=== PATIENT | male | born 1930 | race Caucasian/White ===

== ENCOUNTER 2017-11-17 10:38 | Inpatient (IN) ==
[2017-11-17 11:50] LABS: Basophils % 0.4 % (0.0-0.8); Eosinophils % 0.2 % (0.00-10.9); Hematocrit 37.1 VOL% (42.0-52.0); Hemoglobin 12.6 GM/DL (14.0-18.0); Immature Granulocytes % 0.7 %; Immature Granulocytes Absolute 0.06 #; Lymphocytes # 0.6 10*3/uL (1.4-4.0); Lymphocytes % 7.5 % (21.2-54.2); Mean Corpuscular Hemoglobin 34 PG (27-34); Mean Corpuscular Volume 98.7 FL (87-102); Mean Platelet Volume 9.5 FL (9.6-12.0); Monocytes # 1.3 10*3/uL (0.11-0.8); Monocytes % 15.7 % (1.7-12.7); Neutrophils # 6.4 10*3/uL (1.4-7.4); Neutrophils % 75.5 % (38.7-73.9); Platelet Count 153 T/CUMM (130-400); Red Blood Count 3.76 MC/CUMM (3.8-5.5); Red Cell Distribution Width 13.7 % (9.3-17.3); White Blood Count 8.5 T/CUMM (4-12)
[2017-11-17 12:22] LABS: Band Neutrophils 2 % (0-10); Hypochromasia 1+; Lymphocytes 11 % (20-55); Platelet Estimate Adequate; Segmented Neutrophils 85 % (50-85); Total Cells Counted 100
[2017-11-17 12:26] LABS: Albumin 3.7 G/DL (3.4-5.0); Bilirubin,Total 0.5 MG/DL (0.2-1.0); Calcium 8.9 MG/DL (8.5-10.1); Osmolality,Calculated 281.8 MOS/KG (273-304); Potassium 4.3 MMOL/L (3.5-5.1); Total Protein 7.4 G/DL (6.4-8.3)
[2017-11-17 12:28] LABS: Troponin I Only 0.019 NG/ML (0.00-0.045)
[2017-11-17] MEDS ORDERED: SODIUM CHLORIDE 0.9% 500 ML IV STA (12:44)
[2017-11-17] MEDS ORDERED: ALBUTEROL/IPRATROPIUM 3 ML NEB RESP TX STA (13:56)
[2017-11-17] MEDS ORDERED: BENZONATATE 100 MG CAPSULE PO PRN (15:35)
[2017-11-17] MEDS ORDERED: DEXTROMETHORPHAN ER 6 MG/ML 90 ML/BOTTLE PO PRN (15:35)
[2017-11-17] MEDS ORDERED: ONDANSETRON 4 MG/2 ML VIAL IV PRN (15:35)
[2017-11-17] MEDS ORDERED: ALBUTEROL/IPRATROPIUM 3 ML NEB RESP TX PRN (15:35)
[2017-11-17] MEDS ORDERED: ACETAMINOPHEN 325 MG TABLET PO PRN (15:35)
[2017-11-17] MEDS ORDERED: LOPERAMIDE 2 MG CAPSULE PO PRN (15:35)
[2017-11-17] MEDS: SODIUM CHLORIDE 0.9% 1,000 ML IV SCH (16:16)
[2017-11-17 16:26] LABS: Apearance,Urine CLOUDY (Clear); Bilirubin,Urine Negative (Negative); Blood, Urine Negative (Negative); Glucose,Urine (UA) Negative (Negative); Hyaline Casts,Urine 10 /LPF (0-3); Ketones,Urine Negative (Negative); Mucus,Urine Occasional /LPF (Occasional); Nitrite,Urine Negative (Negative); Protein,Urine Negative; RBC,Urine 1 /HPF (0-4); Urine Color Yellow (Yellow); Urine Specific Gravity 1.008 (1.001-1.035); Urine Urobilinogen < 2.0 EU/DL (0.2-1.0); WBC,Urine <1 /HPF (0-6)
[2017-11-17] MEDS: cefTRIAXone 1,000 MG in SYRINGE 1 EACH IV SCH (16:36)
[2017-11-17] MEDS: OSELTAMIVIR 30 MG CAPSULE PO SCH (21:10)
[2017-11-18 03:05] LABS: Basophils % 0.1 % (0.0-0.8); Hematocrit 37.7 VOL% (42.0-52.0); Hemoglobin 12.4 GM/DL (14.0-18.0); Immature Granulocytes % 0.4 %; Immature Granulocytes Absolute 0.03 #; Lymphocytes # 0.6 10*3/uL (1.4-4.0); Lymphocytes % 8.1 % (21.2-54.2); Mean Corpuscular HGB Conc 32.9 GM/DL (32-36); Mean Corpuscular Hemoglobin 32 PG (27-34); Mean Corpuscular Volume 97.7 FL (87-102); Mean Platelet Volume 9.7 FL (9.6-12.0); Monocytes # 0.5 10*3/uL (0.11-0.8); Monocytes % 7.7 % (1.7-12.7); Neutrophils # 5.9 10*3/uL (1.4-7.4); Neutrophils % 83.7 % (38.7-73.9); Platelet Count 138 T/CUMM (130-400); Red Blood Count 3.86 MC/CUMM (3.8-5.5); Red Cell Distribution Width 13.6 % (9.3-17.3)
[2017-11-18 03:26] LABS: Calcium 8.3 MG/DL (8.5-10.1); Osmolality,Calculated 289.3 MOS/KG (273-304); Potassium 3.2 MMOL/L (3.5-5.1)
[2017-11-18 04:04] LABS: Band Neutrophils 29 % (0-10); Lymphocytes 5 % (20-55); Segmented Neutrophils 60 % (50-85); Total Cells Counted 100
[2017-11-18 04:05] LABS: Macrocytosis 2+; Platelet Estimate Normal
[2017-11-18] MEDS ORDERED: NITROGLYCERIN SL 0.4 MG TABLET SL PRN (05:22)
[2017-11-18] MEDS: SODIUM CHLORIDE 0.9% 1,000 ML IV SCH ×2 (05:46→19:00)
[2017-11-18 07:34] LABS: Albumin 3.1 G/DL (3.4-5.0); Bilirubin,Total 0.4 MG/DL (0.2-1.0); Calcium 8.2 MG/DL (8.5-10.1); Osmolality,Calculated 288.3 MOS/KG (273-304); Potassium 3.9 MMOL/L (3.5-5.1); Total Protein 6.7 G/DL (6.4-8.3)
[2017-11-18] MEDS ORDERED: MAGNESIUM CHLORIDE 64 MG TABLET PO SCH (09:00)
[2017-11-18] MEDS: FUROSEMIDE 40 MG TABLET PO SCH (09:34)
[2017-11-18] MEDS: LISINOPRIL 10 MG TABLET PO SCH (09:35)
[2017-11-18] MEDS: CARVEDILOL 3.125 MG TABLET PO SCH ×2 (09:35→21:15)
[2017-11-18] MEDS: ASPIRIN EC 81 MG TABLET PO SCH (09:35)
[2017-11-18] MEDS: PITAVASTATIN 2 MG TABLET PO SCH (09:35)
[2017-11-18] MEDS: OSELTAMIVIR 30 MG CAPSULE PO SCH ×2 (09:39→21:15)
[2017-11-18] MEDS: OMEGA 3 ACID ETHYL ESTERS 1 GM CAPSULE PO SCH (09:40)
[2017-11-18] MEDS: TICAGRELOR 90 MG TABLET PO SCH ×2 (09:40→21:15)
[2017-11-18] MEDS: PANTOPRAZOLE 40 MG TABLET PO SCH (09:40)
[2017-11-18] MEDS: cefTRIAXone 1,000 MG in SYRINGE 1 EACH IV SCH (15:59)
[2017-11-18] MEDS: MAGNESIUM CHLORIDE 64 MG TABLET PO SCH (21:15)
[2017-11-19] MEDS: SODIUM CHLORIDE 0.9% 1,000 ML IV SCH ×2 (08:50→21:35)
[2017-11-19] MEDS: TICAGRELOR 90 MG TABLET PO SCH ×2 (08:51→21:31)
[2017-11-19] MEDS: LISINOPRIL 10 MG TABLET PO SCH (08:51)
[2017-11-19] MEDS: MAGNESIUM CHLORIDE 64 MG TABLET PO SCH ×2 (08:51→21:30)
[2017-11-19] MEDS: OSELTAMIVIR 30 MG CAPSULE PO SCH ×2 (08:51→21:30)
[2017-11-19] MEDS: FUROSEMIDE 40 MG TABLET PO SCH (08:51)
[2017-11-19] MEDS: ASPIRIN EC 81 MG TABLET PO SCH (08:51)
[2017-11-19] MEDS: PITAVASTATIN 2 MG TABLET PO SCH (08:51)
[2017-11-19] MEDS: CARVEDILOL 3.125 MG TABLET PO SCH ×2 (08:51→21:30)
[2017-11-19] MEDS: OMEGA 3 ACID ETHYL ESTERS 1 GM CAPSULE PO SCH (08:51)
[2017-11-19] MEDS: PANTOPRAZOLE 40 MG TABLET PO SCH (08:51)
[2017-11-19] MEDS: cefTRIAXone 1,000 MG in SYRINGE 1 EACH IV SCH (21:31)
[2017-11-20 05:23] LABS: Basophils % 0.1 % (0.0-0.8); Eosinophils % 0.1 % (0.00-10.9); Hematocrit 32.8 VOL% (42.0-52.0); Hemoglobin 10.8 GM/DL (14.0-18.0); Immature Granulocytes % 0.5 %; Immature Granulocytes Absolute 0.04 #; Lymphocytes # 1.1 10*3/uL (1.4-4.0); Lymphocytes % 14.2 % (21.2-54.2); Mean Corpuscular HGB Conc 32.9 GM/DL (32-36); Mean Corpuscular Hemoglobin 32 PG (27-34); Mean Corpuscular Volume 97.9 FL (87-102); Mean Platelet Volume 10.1 FL (9.6-12.0); Monocytes # 0.7 10*3/uL (0.11-0.8); Monocytes % 9.4 % (1.7-12.7); Neutrophils % 75.7 % (38.7-73.9); Platelet Count 126 T/CUMM (130-400); Red Blood Count 3.35 MC/CUMM (3.8-5.5); Red Cell Distribution Width 13.9 % (9.3-17.3); White Blood Count 7.9 T/CUMM (4-12)
[2017-11-20 05:44] LABS: Burr Cells Slight
[2017-11-20 05:45] LABS: Ovalocytes Slight; Platelet Estimate Adequate
[2017-11-20 05:52] LABS: Calcium 7.9 MG/DL (8.5-10.1); Magnesium 2.1 MG/DL (1.8-2.4); Osmolality,Calculated 297.4 MOS/KG (273-304); Potassium 3.8 MMOL/L (3.5-5.1)
[2017-11-20] MEDS: MAGNESIUM CHLORIDE 64 MG TABLET PO SCH (10:03)
[2017-11-20] MEDS: FUROSEMIDE 40 MG TABLET PO SCH (10:03)
[2017-11-20] MEDS: ASPIRIN EC 81 MG TABLET PO SCH (10:03)
[2017-11-20] MEDS: OMEGA 3 ACID ETHYL ESTERS 1 GM CAPSULE PO SCH (10:04)
[2017-11-20] MEDS: PITAVASTATIN 2 MG TABLET PO SCH (10:04)
[2017-11-20] MEDS: TICAGRELOR 90 MG TABLET PO SCH (10:04)
[2017-11-20] MEDS: PANTOPRAZOLE 40 MG TABLET PO SCH (10:04)
[2017-11-20] MEDS: LISINOPRIL 10 MG TABLET PO SCH (10:04)
[2017-11-20] MEDS: CARVEDILOL 3.125 MG TABLET PO SCH (10:04)
[2017-11-20] MEDS: OSELTAMIVIR 30 MG CAPSULE PO SCH (10:05)
[2017-11-20] MEDS: SODIUM CHLORIDE 0.9% 1,000 ML IV SCH (11:31)
[2017-11-20 16:50] VITALS: BP 123/73
[2017-11-20] MEDS ORDERED: OSELTAMIVIR 75 MG CAPSULE PO SCH (21:00)
== END 2017-11-20 16:40 | disposition home health service (06) | DRG 194 ==
LOC: EDUNIT# → N.ED 10:38 → N.EDINP 14:40 → N.2E 15:53
PROVIDERS: ADMIT Family Medicine; ATTEND Family Medicine